=== PATIENT | male | born 1975 | race Caucasian/White ===

== ENCOUNTER 2017-10-01 11:59 | Emergency (ER) | payer OTHER ==
[2017-10-01] MEDS ORDERED: Acetaminophen/oxyCODONE 325-5 MG Tab PO ONE (13:09)
--- NOTE | 2017-10-02 14:52 | ER ---
DATE SEEN: 10/01/2017 TIME SEEN: The patient was seen at 1244 hours. 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 He has had previous ACL repair. He felt a slight pop, and he said he has pain in his knee and has difficulty with walking. PAST MEDICAL HISTORY: Previous ACL surgery. Nonsmoker. No diabetes, heart disease, high blood pressure, asthma, or other serious illnesses. SOCIAL HISTORY: He is healthy. . Alcohol, negative. REVIEW OF SYSTEMS: Negative. PHYSICAL EXAMINATION: VITAL SIGNS: Blood pressure 121/54, heart rate 68 regular, respirations 18, oxygen saturation 97%, and temperature 36.6 degrees centigrade. 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 LUNGS: Clear without rales or rhonchi. HEART: S1 and S2. No murmur. MOUTH: Oropharynx is negative. ABDOMEN: Soft. No guarding. No abdominal discomfort. MUSCULOSKELETAL: Examination of right knee, has medial and lateral mild joint line tenderness. More than medial than verses lateral. He has difficulty completing extension of his knee, caused him increased pain. No translation of the knee forward on the tibia and fibula. There is no knee joint laxity. Collateral ligament strain. There is mild tenderness, but not diagnostic. Maribel maneuver is not performed because of the discomfort. ASSESSMENT: Possible internal knee derangement and/or partial tear of the anterior cruciate ligament. PLAN: MRI. He is not concerned about cost because he has coverage and feels that will take care of it, and if it does not, he still would pay for the MRI. Consequently, he did not want to wait for clearance from the insurance company. MRI has been performed. The results are not available. DIAGNOSIS: Internal knee derangement; rule out ACL tear, partial tear, or meniscal tear. PLAN: No joint effusion, doubt fracture. I will call the patient tomorrow if the results of the MRI come in, . On 10/02/17 at 1600 Report: Right posterior medial meniscal tear, and indeterminate partial tear of the ACL synthetic graft. /[id number] LS/MODL MTDD
--- NOTE | 2017-10-03 08:52 | ER ---
DATE SEEN: 10/01/2017 HISTORY: George is a 42-year-old fellow, whose MRI report was delayed in coming back. It did not come back the same day that it was done. The report is now back today at around 1500 hours, 10/02/2017. The patient was called and advised that he has a posterior horn tear of meniscus and there was a question of partial strain or change in the ACL graft. His reports have been faxed to him, so he has it available for his orthopedist, who he will be following up with. He has been walked about 1 or 2 miles, and today, he has moderate swelling, pain, discomfort. The patient advised to take my advice to get off his leg and elevate it to decrease the pain. He acknowledged that he thought that was a good idea. /[id number] BRANDIE/SEVEN RENEE
== END 2017-10-01 14:36 | disposition home or self-care (01) ==
LOC: FB.ED 11:59
DX: M23.91 Unspecified internal derangement of right knee (principal)
CPT/HCPCS: 73721; 99284; A9270

== ENCOUNTER 2017-11-26 09:35 | Emergency (ER) | payer OTHER ==
--- NOTE | 2017-11-26 09:57 | EDM.PDOC ---
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 No LOC. However, the patient noticed the "racoon sign" around both eyes this morning. No N/V/D or dizziness or any other acute medical issues. Pt is not taking any blood thinners like ASA of Coumadin. BP 144/81 Pulse 93 RR 17 Pulse ox 98% on RA Temp 36.8 Onset Date: 11/23/17 Onset Time: 09:00 Duration: Day(s):, Intermittent Location: Reports: Face Quality: Reports: Dull Severity: Mild Improves with: Reports: Rest Worsens with: Reports: None Context: Reports: Trauma (fell 15 steps down the stairs) headache Pain Score (Numeric/FACES): 4 - Related Data Allergies Allergy/AdvReac Type Severity Reaction Status Date / Time No Known Allergies Allergy Verified 11/26/17 09:46 Home Meds: Home Meds oxyCODONE HCl/Acetaminophen [Percocet 5-325 mg Tablet] 1 each PO Q4HR #12 tablet 10/01/17 [Rx] traMADol [Ultram] 50 mg PO Q4H PRN #16 tab 11/26/17 [Rx] Past Medical History - Past Health History Medical/Surgical History: Denies Medical/Surgical History Psychiatric History: Reports: PTSD - Past Surgical History Musculoskeletal Surgical History: Reports: Arthroscopic Knee, Other (See Below) Other Musculoskeletal Surgeries/Procedures:: previous ac rupture, femur fx Social & Family History - Caffeine Use Caffeine Use: Reports: None ED ROS GENERAL - Review of Systems Review Of Systems: See Below Constitutional: Reports: No Symptoms HEENT: Reports: Other (periorbital hematoma, minoe) Respiratory: Reports: No Symptoms Cardiovascular: Reports: No Symptoms Endocrine: Reports: No Symptoms GI/Abdominal: Reports: No Symptoms : Reports: No Symptoms Musculoskeletal: Reports: No Symptoms Skin: Reports: No Symptoms Neurological: Reports: No Symptoms Psychiatric: Reports: No Symptoms Hematologic/Lymphatic: Reports: No Symptoms Immunologic: Reports: No Symptoms ED EXAM, HEAD INJURY - Physical Exam Exam: See Below Exam Limited By: No Limitations General Appearance: Alert, WD/WN, No Apparent Distress Head: Normocephalic, Facial Ecchymosis Eyes: Bilateral Eye: Normal Inspection Ears: Normal External Exam Nose: Normal Inspection Throat/Mouth: Normal Inspection Neck: Non-Tender, Full Range of Motion, Normal Alignment, Normal Inspection Respiratory: No Respiratory Distress Cardiovascular: Normal Peripheral Pulses GI/Abdominal Exam: Normal Bowel Sounds (Male) Exam: Deferred Rectal (Males) Exam: Deferred Back Exam: Normal Inspection, Full Range of Motion Extremities: Normal Inspection, Normal Range of Motion, Non-Tender, No Pedal Edema, Normal Capillary Refill Neurologic: fire observer II-XII nml As Tested, No Motor/Sensory Deficits, Alert, Normal Mood/Affect, Oriented x 3 Skin: Ecchymosis (periorbital R > L) - Tamie Coma Score Best Eye Response ([place]): (4) Open Spontaneously Best Verbal Response (Tam[place]): (5) Oriented Best Motor Response ([place]): (6) Obeys Commands [place] Total: 15 Course - Vital Signs Text/Narrative:: 42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 No LOC. However, the patient noticed the "racoon sign" around both eyes this morning. No N/V/D or dizziness or any other acute medical issues. Pt is not taking any blood thinners like ASA of Coumadin. BP 144/81 Pulse 93 RR 17 Pulse ox 98% on RA Temp 36.8 PE: WNWD W M in NAD with " the racoon sign" after a fall 3 days ago Imaging: CT head/Neck: 12 mm bleed right frontal lobe as per RAD Impression: Intracranial bleed 12 mm right frontal lobe 11.45 am. Consultation: Dr. Mora, Neurosurgeon, [facility]: Trauma 3 days old, no Sz meds indicated, Ultram and Motrin ok, No blood thinning meds. no F/U CT necessary!. Tx: Non In ED Reexam: Pt was doing fine in the ED Plan: D/C with instructions Last Recorded V/S: Last Vital Signs Temp 36.9 C 11/26/17 11:55 Pulse 87 11/26/17 11:55 Resp 16 07/10/18 11:55 BP 138/90 11/26/17 11:55 Pulse Ox 100 11/26/17 11:55 - Orders/Labs/Meds Meds: Medications Discontinued Medications Generic Name Dose Route Start Last Admin Trade Name Ashish PRN Reason Stop Dose Admin Tramadol HCl 100 mg 11/26/17 10:37 11/26/17 10:47 Ultram PO 11/26/17 10:38 100 mg ONETIME ONE Administration Departure - Departure Time of Disposition: 11:35 Disposition: Home, Self-Care 01 Condition: Good Clinical Impression: Intracranial bleed - Discharge Information *PRESCRIPTION DRUG MONITORING PROGRAM REVIEWED*: No *COPY OF PRESCRIPTION DRUG MONITORING REPORT IN PATIENT ADITYA: No Prescriptions: traMADol [Ultram] 50 mg PO Q4H PRN #16 tab PRN Reason: for severe pain only Instructions: Steps to Quit Smoking, [id number], Intracranial Hemorrhage, Tramadol tablets Referrals: Mateo Love MD [Primary Care Provider] - Forms: ED Department Discharge Additional Instructions: No F/U CT, no Sz indicated. You can take Motrin and Ultram for pain. Please f/u if indicated. Please come back if your symptoms get worse acutely
[2017-11-26] MEDS ORDERED: traMADol 50 MG Tab PO ONE (10:37)
--- NOTE | 2017-11-26 11:01 | CT ---
INDICATION: Fell down steps, approximately 15 - three days ago, hit occipital area, bilateral black eyes. CT HEAD WITHOUT CONTRAST: Serial contiguous 2.5 and 5 mm sections were obtained through the brain 11/26/2017. No comparisons were available at the time of dictation. Total exam DLP = 950.31 mGy-cm. No evidence of a cranial fracture site was identified. There are opacified ethmoidal air cells, mostly on the right but a few with thickened lining on the left. Thickening of the lining of the left sphenoidal air cell is also noted. Marked thickening of the lining with somewhat frothy appearance is noted at the right maxillary antrum. Findings suggest sinusitis. Mastoid air cells appear to be fairly well-aerated. No shift of midline structures or ventricular abnormalities were identified with slight asymmetry of the ventricles, felt to be a normal variant. A tiny cavum septum pellucidum is noted, also a normal variant. In the right frontal lobe, caudal aspect somewhat laterally, there is a focal acute bleed with surrounding edema of small to moderate size. No shift of midline structures is noted in that area. A tiny subdural hematoma, relatively low in density, is noted in the right frontal area also. No other abnormal areas of density were suggested. IMPRESSION: 1. Small to moderate sized acute bleed in the right frontal lobe, caudal portion somewhat laterally. The area of hemorrhage measured approximately 12 x 8.4 mm. 2. Question a less acute minimal subdural hematoma in the right frontal area. 3. Sinusitis. 4. No definite fracture sites identified. Report was called to Dr. Eugene at 1030 hours on 11/26/2017. [facility]
--- NOTE | 2017-11-26 11:09 | CT ---
INDICATION: Fell down steps, approximately 15 - three days ago, hit occipital area, bilateral black eyes, bilateral neck stiffness, worse on the right. CT CERVICAL SPINE: Spiral 2.5 mm axial sections were obtained through the cervical spine with sagittal and coronal reconstructions, 11/26/2017 - no comparisons were available. Total exam DLP = 521.53 mGy-cm. A definite acute fracture or dislocation was not identified. The odontoid appeared to be intact, as is the atlas. There are noted mild degenerative changes at the atlantoodontoid joint. Mild hypertrophic changes are noted at the C4-5 level with slightly decreased disk space at that level. No impingement on the neural foramina was seen. There are mild degenerative changes at the uncinate joints at that level. At C5-6, the hypertrophic changes at the uncinate joints and anteriorly off vertebral bodies are moderate with narrowing of the neural foramina bilaterally at that level. The disk space is significantly decreased in height. C6-7 also shows similar findings with narrowing of the neural foramina, narrowing of disk space, and hypertrophic changes at the uncinate joints and anteriorly off vertebral bodies. Disk disease is also suggested at C7-T1 with narrowing of the disk space. Very little hypertrophic change is seen at that level, however. The prevertebral space appeared to be normal. Bone density appeared to be normal. Reversal of normal cervical lordosis is noted, centered at the C5-6 level. IMPRESSION: 1. No acute fracture or dislocation. 2. Degenerative changes and disk disease mid cervical spine with impingement on neural foramina at C5-6, C6-7 and reversal of the normal cervical lordosis at that level. Report was called to Dr. Eugene at 1030 hours on 11/26/2017. [facility]
== END 2017-11-26 11:55 | disposition home or self-care (01) ==
LOC: FB.ED 09:35
DX: S06.300A Unspecified focal traumatic brain injury without loss of consciousness, initial encounter (principal); W10.9XXA Fall (on) (from) unspecified stairs and steps, initial encounter
CPT/HCPCS: 70450; 72125; 99283; A9270